=== PATIENT | female | born 1990 | race Caucasian/White ===

== ENCOUNTER 2019-01-15 19:24 | Emergency (ER) | payer OTHER ==
[2019-01-15] MEDS ORDERED: ACETAMINOPHEN 500 MG TABLET (FP) PO ONE (19:33)
--- NOTE | 2019-01-15 19:34 | PDOC ---
Rapid Medical Evaluation Chief Complaint: Pain Time Seen by Provider: 01/15/19 19:33 Medical Evaluation: Allergies Allergy/AdvReac Type Severity Reaction Status Date / Time Penicillins Allergy Verified 09/24/14 21:52 01/15/19 19:33 I performed a brief in-person evaluation of this patient. Chief complaint: 17 wks preg, twisted ankle w swelling, pain Pertinent physical exam findings: Tenderness lateral malleolus, partial weight- bearing I have ordered the following: Xray, Tylenol Patient will proceed to the ED for further evaluation. Discharge Disposition - Diagnosis Ankle pain, left - Referrals - Patient Instructions - Post Discharge Activity
[2019-01-15 19:35] VITALS: BP 131/63; PULSE 84; TEMP 97.5; BMI 31.2
[2019-01-15] MEDS ORDERED: ACETAMINOPHEN 325 MG TABLET (FP) ONE (20:08)
--- NOTE | 2019-01-15 20:12 | PDOC ---
History of Present Illness - General Chief Complaint: Pain Stated Complaint: 17 WEEKS /TWISTED LF ANKLE Time Seen by Provider: 01/15/19 19:33 - History of Present Illness Initial Comments: 01/15/19 20:09 28-year-old 17 week gravid female presents for evaluation of left ankle pain after an inversion-type injury last night. Past History - Past Medical History Allergies/Adverse Reactions: Allergies Allergy/AdvReac Type Severity Reaction Status Date / Time Penicillins Allergy Verified 09/24/14 21:52 Home Medications: Ambulatory Orders NK [No Known Home Medication] 01/15/19 Asthma: No Cancer: No Cardiac Disorders: No Diabetes: No HTN: No Seizures: No Thyroid Disease: No - Reproductive History (#): 1 - Immunization History Immunization Up to Date: Yes - Suicide/Smoking/Psychosocial Hx Smoking History: Never smoked Have you smoked in the past 12 months: No Number of Cigarettes Smoked Daily: 6 If you are a former smoker, when did you quit?: Information on smoking cessation initiated: No Hx Alcohol Use: No Drug/Substance Use Hx: No Substance Use Type: None Hx Substance Use Treatment: No Review of Systems - Review of Systems Musculoskeletal: Yes: Joint Pain *Physical Exam - Vital Signs Last Vital Signs Temp Pulse Resp BP Pulse Ox 97.5 F L 84 20 131/63 100 01/15/19 19:33 01/15/19 19:33 01/15/19 19:33 01/15/19 19:33 01/15/19 19:33 - Physical Exam Comments: 01/15/19 20:09 Left ankle skin color and temperature are normal range of motion is slightly limited. There is tenderness over the lateral malleolus. No tenderness from the knee proximal fibula distally medial malleolus navicular base of the fifth metatarsal. Minimal tenderness over the lateral malleolus moderate tenderness over the ATFL. 1+ anterior try as compared to the contralateral side. No gross sensorimotor deficits she is neurovascularly intact. Moderate Sedation - Procedure Monitoring Vital Signs: Procedure Monitoring Vital Signs Temperature 97.5 F L 01/15/19 19:33 Pulse Rate 84 01/15/19 19:33 Respiratory Rate 20 01/15/19 19:33 Blood Pressure 131/63 01/15/19 19:33 O2 Sat by Pulse Oximetry (%) 100 01/15/19 19:33 *DC/Admit/Observation/Transfer Diagnosis at time of Disposition: Ankle pain, left, Ankle sprain - Discharge Dispostion Disposition: HOME Condition at time of disposition: Stable Decision to Admit order: No - Referrals Referrals: Fredo Kincaid DO [Staff Physician] - - Patient Instructions Printed Discharge Instructions: Ankle Sprain, DI for Ankle Sprain Additional Instructions: He may weight-bear as tolerated with the use of Aircast and crutches. The Aircast may be removed for sleep and hygiene. Follow-up with orthopedics in 2-3 days for further evaluation and treatment options. Only Tylenol for pain no anti -inflammatory such as Advil Motrin Aleve or ibuprofen. No Naprosyn. Return to the emergency room should symptoms worsen or go unresolved. - Post Discharge Activity
== END 2019-01-15 20:34 | disposition home or self-care (01) ==
LOC: JERFT 19:24
PROC: 2W3RX1Z Immobilization of Left Lower Leg using Splint (ICD-10-PCS; principal; 2019-01-15)
DX: O99.89 Other specified diseases and conditions complicating pregnancy, childbirth and the puerperium (principal); S93.402A Sprain of unspecified ligament of left ankle, initial encounter; X50.1XXA Overexertion from prolonged static or awkward postures, initial encounter; Y93.89 Activity, other specified; Y92.89 Other specified places as the place of occurrence of the external cause; Y99.8 Other external cause status; Z3A.17 17 weeks gestation of pregnancy
CPT/HCPCS: 29540; 73610-TC-LT-FY; 99281-25